=== PATIENT | female | born 1980 | race Caucasian/White ===

== ENCOUNTER 2018-11-14 12:00 | Emergency (ER) | payer BC, OTHER ==
[2018-11-14 12:33] VITALS: BP 116/59
--- NOTE | 2018-11-14 13:06 | UC ---
Respiratory Complaint HPI - HPI Summary HPI Summary: cough and congestion for a few days. This started with vomiting and diarrhea before that. No fever. There is ear pain and throat pain on the left. - History of Current Complaint Chief Complaint: UCGeneralIllness Stated Complaint: SORE THROAT,BILAT EAR CONCERN Time Seen by Provider: 11/14/18 12:59 Hx Obtained From: Patient Hx Last Menstrual Period: 10/2018 Onset/Duration: Gradual Onset, Lasting Days Timing: Constant Severity Initially: Moderate Severity Currently: Moderate Pain Intensity: 6 Character: Cough: Nonproductive Aggravating Factors: Deep Breaths, Recumbent Position Alleviating Factors: Upright Position, Spontaneous Resolution Associated Signs And Symptoms: Positive: URI, Nasal Congestion. Negative: Fever , Chills, Hemoptysis, Dizziness, Calf Pain, Calf Swelling - Allergies/Home Medications Allergies/Adverse Reactions: Allergies Allergy/AdvReac Type Severity Reaction Status Date / Time No Known Allergies Allergy Verified 11/14/18 12:29 Home Medications: Home Medications Acetaminophen [Children's Tylenol] 1 dose PO ONCE PRN 11/14/18 [History Confirmed 11/14/18] Albuterol HFA INHALER* [Ventolin HFA Inhaler*] 2 puff INH Q4H PRN 11/14/18 [ History Confirmed 11/14/18] Escitalopram * [Lexapro *] 20 mg PO DAILY 11/14/18 [History Confirmed 11/14/18] PMH/Surg Hx/FS Hx/Imm Hx Previously Healthy: Yes - smoker. - Surgical History Surgical History: Yes Surgery Procedure, Year, and Place: x4. tubal - Family History Known Family History: Positive: Non-Contributory - Social History Alcohol Use: None Substance Use Type: None Smoking Status (MU): Heavy Every Day Tobacco Smoker Type: Cigarettes Amount Used/How Often: 10 cigs daily Review of Systems All Other Systems Reviewed And Are Negative: Yes ENT: Positive: Sore Throat, Ear Ache, Sinus Congestion Respiratory: Positive: Cough Physical Exam Triage Information Reviewed: Yes Appearance: Well-Appearing, No Pain Distress, Well-Nourished Vital Signs: Initial Vital Signs Temp 98.1 F 11/14/18 12:27 Pulse 55 11/14/18 12:27 Resp 17 11/14/18 12:27 BP 116/59 11/14/18 12:27 Pulse Ox 100 11/14/18 12:27 Vital Signs Reviewed: Yes Eyes: Positive: Conjunctiva Clear ENT: Positive: Normal ENT inspection, Pharynx normal, Nasal congestion, TMs normal, Uvula midline. Negative: Pharyngeal erythema, Nasal drainage, TM bulging, TM dull, TM red, Tonsillar swelling, Tonsillar exudate, Trismus, Sinus tenderness Neck: Positive: Supple, Nontender, No Lymphadenopathy Respiratory: Positive: Lungs clear, Normal breath sounds, No respiratory distress, No accessory muscle use. Negative: Respiratory distress, Decreased breath sounds, Accessory muscle use, Crackles, Rhonchi, Stridor, Wheezing Cardiovascular: Positive: No Murmur, Pulses Normal Abdomen Description: Positive: No Organomegaly, Soft. Negative: Distended, Guarding Musculoskeletal: Positive: Strength Intact, ROM Intact, No Edema Neurological: Positive: Alert, Muscle Tone Normal. Negative: Fatigued Psychological: Positive: Age Appropriate Behavior Skin: Negative: Rashes Respiratory Course/Dx - Differential Dx/Diagnosis Provider Diagnosis: Otalgia of left ear, Pharyngitis Discharge - Sign-Out/Discharge Documenting (check all that apply): Patient Departure All imaging exams completed and their final reports reviewed: No Studies - Discharge Plan Condition: Good Disposition: HOME Patient Education Materials: Upper Respiratory Infection (ED) Referrals: Marina Menezes MD [Primary Care Provider] - If Needed - Billing Disposition and Condition Condition: GOOD Disposition: Home
== END 2018-11-14 13:05 | disposition home or self-care (01) ==
LOC: UCCORT 12:00
DX: J02.9 Acute pharyngitis, unspecified (principal); H92.02 Otalgia, left ear; F17.210 Nicotine dependence, cigarettes, uncomplicated
CPT/HCPCS: 87651; 99211; G0463

== ENCOUNTER 2019-09-01 08:49 | Emergency (ER) | payer OTHER ==
[2019-09-01 09:15] VITALS: BP 132/68
--- NOTE | 2019-09-01 10:11 | UC ---
UC General HPI - HPI Summary HPI Summary: Pt presents with c/o sudden onset of urinary incontinence at night that began last thursday night and woke her from sleep, urinary urgency and frequency X 5 days. Pt also c/o cough, PND, "hot flashes" nasal congestion X 1 week. - History of Current Complaint Chief Complaint: UCGU Stated Complaint: URINARY/UPPER RESPITORY Time Seen by Provider: 09/01/19 10:04 Hx Obtained From: Patient Hx Last Menstrual Period: 08/09/19 Onset/Duration: Sudden Onset, Still Present Onset Severity: Mild Current Severity: Mild Pain Intensity: 0 Associated Signs & Symptoms: Positive: Cough, Other - urinary incontinence - Allergy/Home Medications Allergies/Adverse Reactions: Allergies Allergy/AdvReac Type Severity Reaction Status Date / Time No Known Allergies Allergy Verified 09/01/19 09:07 Home Medications: Home Medications FLUoxetine* [Prozac*] 10 mg PO DAILY 09/01/19 [History Confirmed 09/01/19] Guaifenesin/Dextromethorphan [Children's Mucinex Cough Liq] 20 ml PO ONCE PRN [History Confirmed 09/01/19] PMH/Surg Hx/FS Hx/Imm Hx Previously Healthy: Yes - Surgical History Surgical History: Yes Surgery Procedure, Year, and Place: x4. tubal - Family History Known Family History: Positive: Non-Contributory - Social History Occupation: Works From/At Home Lives: With Family Alcohol Use: None Substance Use Type: None Smoking Status (MU): Heavy Every Day Tobacco Smoker Type: Cigarettes Amount Used/How Often: 10 cigs daily Have You Smoked in the Last Year: Yes Review of Systems All Other Systems Reviewed And Are Negative: Yes Constitutional: Positive: Negative Skin: Positive: Negative Eyes: Positive: Negative ENT: Positive: Sinus Congestion Respiratory: Positive: Cough Cardiovascular: Positive: Negative Gastrointestinal: Positive: Negative Genitourinary: Positive: Frequency, Urgency, Other - incontinence Motor: Positive: Negative Neurovascular: Positive: Negative Musculoskeletal: Positive: Negative Neurological: Positive: Negative Psychological: Positive: Negative Is Patient Immunocompromised?: No Physical Exam Triage Information Reviewed: Yes Appearance: Well-Appearing Vital Signs: Initial Vital Signs Temp 98 F 09/01/19 09:09 Pulse 74 09/01/19 09:09 Resp 16 09/01/19 09:09 BP 132/68 09/01/19 09:09 Pulse Ox 100 09/01/19 09:09 Vital Signs Reviewed: Yes Eye Exam: Normal ENT: Positive: Nasal congestion Dental Exam: Normal Neck exam: Normal Respiratory Exam: Normal Respiratory: Positive: Normal breath sounds Cardiovascular Exam: Normal Abdominal Exam: Normal Abdomen Description: Positive: Nontender Musculoskeletal Exam: Normal Neurological Exam: Normal Psychological Exam: Normal Skin Exam: Normal Course/Dx - Course Course Of Treatment: Pt denied being in any pain. Pt denied any known FMH for cancer. - Differential Dx - Multi-Symptom Differential Diagnoses: Urinary Tract Infection, Other - bladder cancer. kidney stone - Diagnoses Provider Diagnosis: Hematuria, Cough in adult Discharge ED - Sign-Out/Discharge Documenting (check all that apply): Patient Departure All imaging exams completed and their final reports reviewed: No Studies - Discharge Plan Condition: Stable Disposition: HOME Prescriptions: Cephalexin CAP* [Keflex 500 CAP*] 500 mg PO Q12H #14 cap Patient Education Materials: Hematuria (ED), Urinary Urgency and Frequency (DC) Referrals: Marina Menezes MD [Primary Care Provider] - If Needed Additional Instructions: Please follow up immediately with your PCP or as scheduled. Please drink at least 36 ounces of water a day. If your symptoms worsen, please go to the closest emergency room as soon as possible. - Billing Disposition and Condition Condition: STABLE Disposition: Home - Attestation Statements Provider Attestation: I was available for consult. This patient was seen by the GUSTAVO. The patient was not presented to, seen by, or examined by me. -Marj
== END 2019-09-01 10:24 | disposition home or self-care (01) ==
LOC: UCCORT 08:49
DX: R31.9 Hematuria, unspecified (principal); R05 Cough; R09.81 Nasal congestion; R39.15 Urgency of urination; F17.210 Nicotine dependence, cigarettes, uncomplicated
CPT/HCPCS: 81003; 87086; 99212; G0463